=== PATIENT | female | born 1940 | race Caucasian/White ===

== ENCOUNTER 2022-10-16 10:22 | Day surgery (SDC) | payer MEDICARE ==
[2022-10-10 10:55] LABS: BASOPHILS % (AUTO) 0.8 % (0-1); EOSINOPHILS # (AUTO) 0.3 X10'3 (0-0.9); EOSINOPHILS % (AUTO) 5.5 % (0-6); LYMPHOCYTES # (AUTO) 0.8 X10'3 (1.1-4.8); LYMPHOCYTES % (AUTO) 16.6 % (21-51); MEAN CORPUSCULAR HEMOGLOBIN 30.9 PG (27.0-31.0); MEAN CORPUSCULAR HGB CONC 33.7 g/dL (33.0-36.5); MEAN CORPUSCULAR VOLUME 91.7 FL (78-98); MEAN PLATELET VOLUME 8.9 FL (7.4-10.4); MONOCYTES # (AUTO) 0.6 X10'3 (0-0.9); MONOCYTES % (AUTO) 11.6 % (2-12); NEUTROPHILS # (AUTO) 3.3 X10'3 (1.8-7.7); NEUTROPHILS % (AUTO) 65.5 % (42-75); PRE OP HEMATOCRIT 38.4 % (35.0-45.0); PRE OP HEMOGLOBIN 12.9 g/dL (12.0-16.0); PRE OP PLATELET COUNT 141 X10'3 (140-440); RED BLOOD COUNT 4.18 X10'6 (4.20-5.60)
[2022-10-10 11:11] LABS: ALBUMIN 3.8 G/DL (3.4-5.0); ALBUMIN/GLOBULIN RATIO 1.1 (1.1-1.5); ALKALINE PHOSPHATASE 66 IU/L (46-116); BLOOD UREA NITROGEN 23 MG/DL (7-18); BUN/CREATININE RATIO 22.5 (10.0-20.0); CHLORIDE 109 MMOL/L (99-107); CREATININE 1.02 MG/DL (0.40-0.90); PRE OP ALT 26 U/L (30-65); PRE OP ANION GAP 9 (8-16); PRE OP AST 22 U/L (10-37); PRE OP BILIRUB, TOTAL 0.4 MG/DL (0.0-1.0); PRE OP GLUCOSE 109 MG/DL (70-104); PRE OP POTASSIUM 4.5 MMOL/L (3.4-5.1); PRE OP SODIUM 144 MMOL/L (135-145); TOTAL CARBON DIOXIDE 25.7 MMOL/L (24-32); TOTAL PROTEIN 7.2 G/DL (6.4-8.2); eGFR 52 ML/MIN
[~2022-10-16] VITALS: Ht 167.6 cm; Wt 98.2 kg
[2022-10-16] VITALS (9 sets, daily range): BP systolic 115–162; BP diastolic 60–98; PULSE 63–74; RESP 11–17; TEMP 97.4–98.2; O2SAT 91–99
[~2022-10-16 10:22] MED LIST: ACET-1995 PO; ANAS1TAB10 PO; ASPI81TA52 PO; CALC-1215 PO; DENO60DI SUBCUT; FAMO20TA8 PO; INDOCYANINE GREEN 25 MG/10 ML VIAL IV ONE; LIDOcaine 2% (20mg/ml) 5ml vial ONE; LOSA50TA64 PO; MIRALAX; MVI; OMEGA COMPLEX; SIMV-42 PO; SPIR25TA5 PO; VITAMIN B COMPLEX; VITAMIN D3; cefazolin 2gm/D5W 100mL 100 ML IV ONE; dexamethasone sod phosphate 4mg/ml inj. ONE; famotidine 20mg tablet PO ONE; fentaNYL/PF 50MCG/1 ML 2ML syringe ONE; heparin 1,000unit/ml 10ml vial 10 ML ONE; midazolam 1 mg/ML 2ml injection ONE; morphine 4 MG/ML inj SYRINge IV ONE; propofol inj 20 ML IV ONE; ringers solution, lacted 1,000 ML IV SCH; rocuronium 10mg/ml inj IV ONE
[2022-10-16] MEDS ORDERED: BUPIVAcaine/PF 2.5 mg/ml (0.25%) 30ml vial ONE (13:08)
[2022-10-16] MEDS ORDERED: LIDOcaine 1% 30ml preserv. free vial ONE (13:08)
[2022-10-16] MEDS ORDERED: desflurane 240ml liquid inh. IH ONE (13:17)
[2022-10-16] MEDS ORDERED: neostigmine methylsulfate 1 MG/ML 10ml vial ONE (13:17)
[2022-10-16] MEDS ORDERED: dexamethasone sod phosphate 10mg/ml inj ONE (13:17)
[2022-10-16] MEDS ORDERED: rocuronium 10mg/ml inj IV ONE (13:33)
[2022-10-16] MEDS ORDERED: glycopyrrolate 0.2mg/ml inj ONE (13:33)
[2022-10-16] MEDS ORDERED: fentaNYL/PF 50MCG/1 ML 2ML syringe ONE (13:33)
[2022-10-16] MEDS ORDERED: propofol inj 20 ML IV ONE (13:33)
[2022-10-16] MEDS ORDERED: LIDOcaine 2% (20mg/ml) 5ml vial ONE (13:33)
[2022-10-16] MEDS ORDERED: ondansetron/PF 4mg/2ml inj ONE (13:44)
[2022-10-16] MEDS ORDERED: LIDOcaine 1% 30ml preserv. free vial IJ ONE (13:48)
[2022-10-16] MEDS ORDERED: BUPIVAcaine/PF 2.5 mg/ml (0.25%) 30ml vial IJ ONE (14:00)
[2022-10-16] MEDS ORDERED: labetalol 20mg/4ml (5mg/ml) syringe IV ONE (14:03)
[2022-10-16] MEDS ORDERED: labetalol 20mg/4ml (5mg/ml) syringe IV PRN (14:05)
[2022-10-16] MEDS ORDERED: ringers solution, lacted 1,000 ML IV SCH (14:05)
[2022-10-16] MEDS ORDERED: ondansetron/PF 4mg/2ml inj IV PRN (14:05)
[2022-10-16] MEDS ORDERED: hydrALAZINE 20mg/ml inj. IV PRN (14:05)
[2022-10-16] MEDS ORDERED: morphine 2 MG/ML inj. syringe IV PRN (14:05)
[2022-10-16] MEDS ORDERED: morphine 4 MG/ML inj SYRINge IV PRN (14:05)
[2022-10-16] MEDS ORDERED: fentaNYL/PF 50MCG/1 ML 2ML syringe IV PRN ×2 (14:05)
[2022-10-16] MEDS ORDERED: HYDROcodone/acetaminophen 5mg/325mg tablet PO PRN (15:05)
--- NOTE | 2022-10-16 15:56 | NUR ---
ALL DISCHARGE CRITERIA HAS BEEN MET. VSS, PAIN AT A TOLERABLE LEVEL, ABLE TO SAFELY AMBULATE AND TRANSFER SELF. IV TAKEN OUT WITHOUT ANY COMPLICATIONS. ALL DISCHARGE INSTRUCTIONS COVERED WITH PATIENT AND ALL QUESTIONS ANSWERED. PATIENT TAKEN OUT VIA WHEELCHAIR WITH ALL BELONGINGS TO PERSONAL VEHICLE WHERE FAMILY DROVE PATIENT HOME. Addendum: 10/16/22 at 1602 by Alexis Larsen RN Amended: Links added.
== END 2022-10-16 15:56 | disposition home or self-care (01) ==
LOC: PAS 10:22
PROVIDERS: ATTEND Surgery
DX: K80.10 Calculus of gallbladder with chronic cholecystitis without obstruction (principal); K82.8 Other specified diseases of gallbladder; K43.2 Incisional hernia without obstruction or gangrene; K21.9 Gastro-esophageal reflux disease without esophagitis; G47.33 Obstructive sleep apnea (adult) (pediatric); I12.9 Hypertensive chronic kidney disease with stage 1 through stage 4 chronic kidney disease, or unspecified chronic kidney disease; N18.30 Chronic kidney disease, stage 3 unspecified; M19.90 Unspecified osteoarthritis, unspecified site; E78.00 Pure hypercholesterolemia, unspecified; Z88.1 Allergy status to other antibiotic agents; Z88.2 Allergy status to sulfonamides; Z88.8 Allergy status to other drugs, medicaments and biological substances; Z91.040 Latex allergy status; Z91.048 Other nonmedicinal substance allergy status; Z79.899 Other long term (current) drug therapy; Z79.82 Long term (current) use of aspirin; Z85.3 Personal history of malignant neoplasm of breast; Z98.890 Other specified postprocedural states; Z98.41 Cataract extraction status, right eye; Z98.42 Cataract extraction status, left eye; Z90.710 Acquired absence of both cervix and uterus; Z96.653 Presence of artificial knee joint, bilateral; Z82.49 Family history of ischemic heart disease and other diseases of the circulatory system; Z82.61 Family history of arthritis; Z80.7 Family history of other malignant neoplasms of lymphoid, hematopoietic and related tissues
CPT/HCPCS: 36415; 47563; 49591; 80053; 82948; 85025; J0690; J1100; J2405; J2704; J2710; J3010; J3490; J7030; J7120; Z7506; Z7508; Z7512; A4215; A4618; A7000; J1644; J2250; J2270

== ENCOUNTER 2024-05-24 08:29 | Day surgery (SDC) | payer MEDICARE, OTHER ==
[2024-05-19 11:31] LABS: BASOPHILS % (AUTO) 0.8 % (0-1); EOSINOPHILS # (AUTO) 0.4 X10'3 (0-0.9); EOSINOPHILS % (AUTO) 6.7 % (0-6); LYMPHOCYTES % (AUTO) 17.8 % (21-51); MEAN CORPUSCULAR HEMOGLOBIN 29.6 PG (27.0-31.0); MEAN CORPUSCULAR VOLUME 89.7 FL (78-98); MEAN PLATELET VOLUME 8.7 FL (7.4-10.4); MONOCYTES # (AUTO) 0.6 X10'3 (0-0.9); MONOCYTES % (AUTO) 10.8 % (2-12); NEUTROPHILS # (AUTO) 3.7 X10'3 (1.8-7.7); NEUTROPHILS % (AUTO) 63.9 % (42-75); PRE OP HEMATOCRIT 40.2 % (35.0-45.0); PRE OP HEMOGLOBIN 13.3 g/dL (12.0-16.0); PRE OP PLATELET COUNT 156 X10'3 (140-440); PRE OP WHITE BLOOD COUNT 5.8 10'3 (4.8-10.8); RED BLOOD COUNT 4.49 X10'6 (4.20-5.60); RED CELL DISTRIBUTION WIDTH 14.4 % (11.5-14.5)
[2024-05-19 12:05] LABS: ALBUMIN 3.8 G/DL (3.4-5.0); ALKALINE PHOSPHATASE 62 IU/L (46-116); BLOOD UREA NITROGEN 23 MG/DL (7-18); BUN/CREATININE RATIO 23.2 (10.0-20.0); CALCIUM 9.8 MG/DL (8.5-10.1); CHLORIDE 107 MMOL/L (99-107); CREATININE 0.99 MG/DL (0.40-0.90); PRE OP ALT 27 U/L (30-65); PRE OP ANION GAP 5 (8-16); PRE OP AST 30 U/L (10-37); PRE OP BILIRUB, TOTAL 0.5 MG/DL (0.0-1.0); PRE OP GLUCOSE 105 MG/DL (70-104); PRE OP POTASSIUM 4.2 MMOL/L (3.4-5.1); PRE OP SODIUM 143 MMOL/L (135-145); TOTAL CARBON DIOXIDE 30.7 MMOL/L (24-32); TOTAL PROTEIN 7.5 G/DL (6.4-8.2); eGFR 54 ML/MIN
[~2024-05-24] VITALS: Ht 168.9 cm; Wt 95.0 kg
[2024-05-24] VITALS (11 sets, daily range): BP systolic 143–167; BP diastolic 74–99; PULSE 62–82; RESP 7–21; TEMP 98.3; O2SAT 95–98
[2024-05-24] MEDS: ceFAZolin 2gm in dextrose, iso 50 ML IV ONE (05:30)
[~2024-05-24 08:29] MED LIST changes: -ACET-1995 PO; -ANAS1TAB10 PO; +ASCO100031 PO; -CALC-1215 PO; +CALC250T2 PO; +CHOL100062 PO; +CYAN500011 PO; +EZET10TA48 PO; -FAMO20TA8 PO; -INDOCYANINE GREEN 25 MG/10 ML VIAL IV ONE; +KEN0.1O TOP; +LACT1CAP65 PO; +LETR2.5T7 PO; -LIDOcaine 2% (20mg/ml) 5ml vial ONE; -MIRALAX; +MULT-1085 PO; -MVI; -OMEGA COMPLEX; +OMEP40CA21 PO; +POLY119P2 PO; +SIMV-343 PO; -SIMV-42 PO; +TURMERIC PO; -VITAMIN B COMPLEX; -VITAMIN D3; -cefazolin 2gm/D5W 100mL 100 ML IV ONE; -dexamethasone sod phosphate 4mg/ml inj. ONE; -famotidine 20mg tablet PO ONE; -fentaNYL/PF 50MCG/1 ML 2ML syringe ONE; -heparin 1,000unit/ml 10ml vial 10 ML ONE; -midazolam 1 mg/ML 2ml injection ONE; -morphine 4 MG/ML inj SYRINge IV ONE; -propofol inj 20 ML IV ONE; -ringers solution, lacted 1,000 ML IV SCH; -rocuronium 10mg/ml inj IV ONE
[2024-05-24] MEDS: ringers solution, lacted 1,000 ML IV SCH (09:43)
[2024-05-24] MEDS: famotidine 20mg tablet PO ONE (09:44)
[2024-05-24] MEDS ORDERED: TURMERIC PO (10:38)
[2024-05-24] MEDS ORDERED: sevoflurane 250ml liquid IH ONE (11:28)
[2024-05-24] MEDS ORDERED: BUPIVAcaine/PF 2.5mg/ml (0.25%) 10ml vial ONE (11:29)
[2024-05-24] MEDS ORDERED: LIDOcaine 1% 30ml preserv. free vial ONE (11:29)
[2024-05-24] MEDS ORDERED: BUPIVACAINE liposomal/PF 13.3 MG/ML 10mL vial IM ONE (11:32)
[2024-05-24] MEDS ORDERED: BUPIVAcaine 2.5mg/ml inj 50ml vial (contains preservative) ONE (11:33)
[2024-05-24] MEDS ORDERED: midazolam 1 mg/ML 2ml injection ONE (11:44)
[2024-05-24] MEDS ORDERED: fentaNYL/PF 50MCG/1 ML 2ML syringe ONE (11:44)
[2024-05-24] MEDS ORDERED: LIDOcaine 2% (20mg/ml) 5ml vial ONE (11:57)
[2024-05-24] MEDS ORDERED: ondansetron/PF 4mg/2ml inj ONE (11:57)
[2024-05-24] MEDS ORDERED: propofol inj 20 ML IV ONE (11:57)
[2024-05-24] MEDS ORDERED: dexamethasone sod phosphate 4mg/ml inj. ONE (11:57)
[2024-05-24] MEDS ORDERED: ePHEDrine 50MG/ML INJ. ONE (12:06)
[2024-05-24] MEDS ORDERED: neostigmine methylsulfate 1 MG/ML 10ml vial ONE (12:14)
[2024-05-24] MEDS ORDERED: glycopyrrolate 0.2mg/ml inj ONE (12:14)
[2024-05-24] MEDS ORDERED: morphine 4 MG/ML inj SYRINge IV PRN (12:55)
[2024-05-24] MEDS ORDERED: hydrALAZINE 20mg/ml inj. IV PRN (12:55)
[2024-05-24] MEDS ORDERED: HYDROmorphone/PF 0.2 MG/ML SYRINGE IV PRN ×2 (12:55)
[2024-05-24] MEDS ORDERED: ondansetron/PF 4mg/2ml inj IV PRN (12:55)
[2024-05-24] MEDS ORDERED: meperidine/PF 25mg/ml syringe IV PRN (12:55)
[2024-05-24] MEDS ORDERED: morphine 2 MG/ML inj. syringe IV PRN (12:55)
[2024-05-24] MEDS ORDERED: proCHLORperazine 10 MG/2 ml inj IV PRN (12:55)
[2024-05-24] MEDS ORDERED: labetalol 20mg/4ml (5mg/ml) syringe IV PRN (12:55)
[2024-05-24] MEDS ORDERED: ringers solution, lacted 1,000 ML IV SCH (12:55)
[2024-05-24] MEDS ORDERED: oxyCODONE/APAP 5-325mg tablet PO PRN (13:35)
[2024-05-24] MEDS: acetaminophen 1,000mg/100ml IV 100 ML IV PRN (14:11)
== END 2024-05-24 15:32 | disposition home or self-care (01) ==
LOC: PAS 08:29
PROVIDERS: ATTEND Surgery
DX: K43.2 Incisional hernia without obstruction or gangrene (principal); G47.33 Obstructive sleep apnea (adult) (pediatric); I12.9 Hypertensive chronic kidney disease with stage 1 through stage 4 chronic kidney disease, or unspecified chronic kidney disease; N18.9 Chronic kidney disease, unspecified; K21.9 Gastro-esophageal reflux disease without esophagitis; E78.00 Pure hypercholesterolemia, unspecified; M19.90 Unspecified osteoarthritis, unspecified site; Z79.899 Other long term (current) drug therapy; G47.30 Sleep apnea, unspecified; G43.909 Migraine, unspecified, not intractable, without status migrainosus; Z85.3 Personal history of malignant neoplasm of breast; Z90.710 Acquired absence of both cervix and uterus; Z98.890 Other specified postprocedural states; E78.5 Hyperlipidemia, unspecified; Z88.8 Allergy status to other drugs, medicaments and biological substances; Z88.2 Allergy status to sulfonamides; Z91.040 Latex allergy status; Z96.651 Presence of right artificial knee joint; Z79.82 Long term (current) use of aspirin; Z88.1 Allergy status to other antibiotic agents; Z88.6 Allergy status to analgesic agent
CPT/HCPCS: 36415; 49615; 64488; 80053; 82948; 85025; 93005; A4215; A4615; A4618; A6258; C1713; C1781; J0131; J0666; J0690; J1100; J2003; J2250; J2405; J2704; J2710; J3010; J3490; J7030; J7120; Z7506; Z7508; Z7512; Z7610